=== PATIENT | male | born 1965 | race Caucasian/White ===

== ENCOUNTER → 2018-06-02 | Outpatient (CLI) | payer BC ==
--- NOTE | 2018-06-02 15:47 | KCIC ---
MRI of the cervical spine without contrast 06/02/2018 CLINICAL HISTORY: Neck pain which radiates down the right arm for 3 months. TECHNIQUE: Unenhanced T1-weighted, T2-weighted and recovery sagittal and gradient echo and T2-weighted axial images of the cervical spine were obtained. FINDINGS: Comparison is made to radiographs of the cervical spine dated 05/14/2018. Minimal lateral curvature of the cervical spine is seen convex to the left. There is straightening of the normal cervical lordosis. Degenerative signal changes are seen involving all of the disks of the cervical spine. Degenerative signal changes are seen within the marrow surrounding these discs. The cervical spinal cord is normal in morphology, position, and signal characteristics. At the C2-3, C3-4 and C4-5 disc spaces there are minimal to mild generalized disc bulges. Degenerative changes are seen involving the uncovertebral and facet joints bilaterally. These findings do not result in significant central spinal canal or neural foraminal stenosis. At the C5-6 disc space there is a mild to moderate generalized disc bulge. Degenerative changes are seen involving the uncovertebral and facet joints, right greater than left. These findings when combined do not result in significant central spinal canal stenosis. Mild bilateral neural foraminal stenosis is seen. At the C6-7 disc space there is a mild generalized disc bulge. Superimposed on this disc bulge is a right paracentral/lateral disc osteophyte complex. This measures 4 mm in AP diameter. Degenerative changes are seen involving the uncovertebral and facet joints bilaterally. These findings when combined do not result in significant central spinal canal stenosis. Mild to moderate right greater than left neural foraminal stenosis is seen. At the C7-T1 disc space there is a mild generalized disc bulge. Degenerative changes are seen involving the facet joints, left greater than right. These findings do not result in significant central spinal canal stenosis. No neural foraminal stenosis is seen. IMPRESSION: Degenerative changes are seen throughout the cervical spine. These findings do not result in significant central spinal canal stenosis. Mild bilateral neural foraminal stenosis is seen at C5-6. Mild to moderate right greater than left neural foraminal stenosis is seen at C6-7. Electronically signed by: Andrei Palacios MD (06/02/2018 3:43 PM) [facility]
== END | disposition home or self-care (01) ==
LOC: KCIC MRI 13:43
DX: M48.02 Spinal stenosis, cervical region (principal); M50.33 Other cervical disc degeneration, cervicothoracic region
CPT/HCPCS: 72141

== ENCOUNTER → 2018-10-18 | Outpatient (CLI) | payer BC ==
--- NOTE | 2018-10-18 13:22 | CARD ---
MR#: [id number] Date of Study: 10/18/2018 Ordering Physician: GERARD HURT, Referring Physician: GERARD HURT, Tech: Kenia Alexandra APPROVED REPORT EXAM: Two-dimensional and M-mode echocardiogram with Doppler and color Doppler. Other Information Quality : AverageHR: 77bpm Technically limited study due to body habitus. INDICATION Palpitations RISK FACTORS Hypertension Hyperlipidemia 2D DIMENSIONS RVDd3.5 (2.9-3.5cm)Left Atrium(2D)3.6 (1.6-4.0cm) IVSd1.3 (0.7-1.1cm)Aortic Root(2D)3.6 (2.0-3.7cm) LVDd5.6 (3.9-5.9cm)LVOT Diameter2.4 (1.8-2.4cm) PWd1.3 (0.7-1.1cm)LVDs3.4 (2.5-4.0cm) FS (%) 39.1 %SV104.9 ml LVEF(%)68.9 (>50%) Aortic Valve AoV Peak Wu.158.9cm/sAoV VTI29.7cm AO Peak GR.10.1mmHgLVOT Peak Wu.109.5cm/s LVOT VTI 20.76cmAO Mean GR.6mmHg GOLDEN (VMAX)2.77mr0WVV (VTI)3.12cm2 Mitral Valve MV E Zxbzcsli17.4cm/sMV DECEL QPTZ379he MV A Zockrmid81.3cm/sMV CZC51wq E/A Ratio0.8MVA (PHT)2.85cm2 TDI E/Lateral E'5.2E/Medial E'6.5 Pulmonary Valve PV Peak Tnnvckea821.4cm/sPV Peak Grad.11mmHg Tricuspid Valve TR P. Auolzcbi293hj/sRAP NHXHMHNI8bhCi TR Peak Gr.12hdZkVVKN64kmXi Pulmonary Vein S1 Ooakbadg27.2cm/sD2 Odxbcjpy61.6cm/s PVa [id number] LEFT VENTRICLE The left ventricle is normal size. There is moderate concentric left ventricular hypertrophy. The lef t ventricular systolic function is normal. The Ejection Fraction is 55-60%. There is normal LV segmen iftikhar wall motion. Transmitral Doppler flow pattern is Grade I-abnormal relaxation pattern. RIGHT VENTRICLE The right ventricle is normal size. There is normal right ventricular wall thickness. The right ventr icular systolic function is normal. ATRIA The left atrium is mildly dilated. The right atrium size is normal. The interatrial septum is intact with no evidence for an atrial septal defect or patent foramen ovale as noted on 2-D or Doppler imagi ng. AORTIC VALVE The aortic valve is normal in structure and function. Doppler and Color Flow revealed no significant aortic regurgitation. There is no significant aortic valvular stenosis. MITRAL VALVE The mitral valve is normal in structure and function. There is no evidence of mitral valve prolapse. There is no mitral valve stenosis. Doppler and Color Flow revealed no mitral valve regurgitation note d. TRICUSPID VALVE The tricuspid valve is normal in structure and function. Doppler and Color Flow revealed trace tricus pid valve regurgitation noted with an estimated PAP of 30 mmHg. There is no tricuspid valve stenosis. PULMONIC VALVE The pulmonic valve is not well visualized. Doppler and Color Flow revealed trace pulmonic valvular re gurgitation. GREAT VESSELS The aortic root is normal in size. The IVC was not visualized. PERICARDIAL EFFUSION There is no evidence of significant pericardial effusion. Critical Notification Critical Value: No <Conclusion> The left ventricular systolic function is normal. The Ejection Fraction is 55-60%. There is normal LV segmental wall motion. Transmitral Doppler flow pattern is Grade I-abnormal relaxation pattern. The left atrium is mildly dilated. Trace tricuspid valve regurgitation noted with an estimated PAP of 30 mmHg. There is no evidence of significant pericardial effusion. Signed by : Rito Ramirez, Electronically Approved : 10/18/2018 13:21:45
== END | disposition home or self-care (01) ==
LOC: ECHO 12:09
PROVIDERS: ATTEND Internal Medicine Cardiovascular Disease
DX: I07.1 Rheumatic tricuspid insufficiency (principal); I11.9 Hypertensive heart disease without heart failure; E78.5 Hyperlipidemia, unspecified
CPT/HCPCS: 93306